=== PATIENT | male | born 1965 | race Caucasian/White ===

== ENCOUNTER 2024-12-23 02:17 | Emergency (ER) | payer BC, SELFPAY ==
--- NOTE | ~2024-12-23 | XR_ITS ---
Examination: XR chest 2V Clinical History: sob Comparison: None Technique: PA and Lateral Findings: Cardiomediastinal silhouette normal size and configuration. Hyperinflation. A few calcified granulomata. Lungs otherwise clear. No acute bony abnormality. IMPRESSION: 1. No acute cardiopulmonary findings. 2. Emphysema with probable COPD. Consider annual screening CT chest. Reviewed, dictated and finalized at location R.
[2024-12-23 02:13] VITALS: BP 147/88; PULSE 85; RESP 22; TEMP 36.8; O2SAT 99
--- NOTE | 2024-12-23 02:22 | ECG_ITS ---
Test Date: 2024-12-23 02:23:25 Measurements Intervals [place] Rate: 83 P: 72 OR: 151 QRS: 265 QRSD: 146 T: 73 QT: 421 QTc: 496 Interpretive Statements SINUS RHYTHM INDETERMINATE AXIS RIGHT BUNDLE BRANCH BLOCK Electronically Signed On 12-24-2024 20:37:20 CDT by Curt Kwong D.O
[2024-12-23 02:25] VITALS: PULSE 79; O2SAT 99
[2024-12-23 02:26] VITALS: O2SAT 96
[2024-12-23 02:31] VITALS: BP 140/85; PULSE 81; RESP 21; O2SAT 97
[2024-12-23 02:44] LABS: Hematocrit 44.3 % (42.0-52.0); Hemoglobin 14.9 g/dL (14.0-18.0); Immature Granulocyte Percent A 0.4 % (0-0.5); Lymphocytes Absolute Auto 1.99 K/mm3 (0.9-3.2); Mean Corpuscular HGB Conc 33.6 g/dl (32-36); Mean Corpuscular Hemoglobin 29.7 pg (26-34); Mean Corpuscular Volume 88.4 fl (80-100); Nucleated Red Blood Cells Absolute Auto 0.000 K/mm3 (0.0-0.012); Nucleated Red Blood Cells Perc 0.0 % (0.0-0.2); Platelet Count Result 350 k/mm3 (150-375); Red Blood Count 5.01 M/mm3 (4.6-6.20); White Blood Count 7.9 K/mm3 (4.5-10.0)
[2024-12-23 02:56] LABS: Alanine Aminotransferase 17 U/L (6-50); Albumin Level 4.4 g/dL (3.5-5.1); Alkaline Phosphatase 63 U/L (38-126); Anion Gap 9 mmol/L (4-12); Aspartate Amino Transferase 23 U/L (17-59); Bilirubin,Total 0.5 mg/dL (0.2-1.3); Blood Urea Nitrogen 21 mg/dL (9-20); Calcium 8.8 mg/dL (8.4-10.2); Carbon Dioxide 23 mmol/L (22-30); Chloride 105 mmol/L (98-107); Estimated CRCL calculation 71 ml/min; Estimated Glomerular Filt Rate > 60; Glucose 90 mg/dL (65-110); Potassium 3.5 mmol/L (3.4-5.0); Sodium 137 mmol/L (137-145); Total Protein 7.2 g/dL (6.3-8.2)
--- NOTE | 2024-12-23 03:47 | ED_ITS ---
HPI - General Adult General Chief complaint: Shortness of Breath/Dyspnea Stated complaint: SOB Time Seen by Provider: 12/23/24 02:38 History of Present Illness HPI narrative: Patient is a 59-year-old male who presents emergency department this evening in respiratory distress. Patient was picked up by EMS from local hotel complaining of shortness of breath. Upon EMS arrival, patient was satting 79% on room air, diffusely wheezing and tripoding. He was placed on a 15 L non-rebreather and administered 2 g of Mag, 125 mg IV Solu-Medrol and a DuoNeb breathing treatment with improvement of his symptoms. Upon arrival to the emergency department, patient is satting 99% on room air. Patient does have a history of COPD and does use an inhaler. 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 One of these chemical his ammonia nitrite. States that in the past this particular chemical has exacerbated his symptoms. Patient is currently resting comfortably, does not appear to be in any distress. Related Data Allergies Allergy/AdvReac Type Severity Reaction Status Date / Time No Known Allergies Allergy Verified 12/23/24 02:23 Review of Systems 2 Review of Systems: All systems are reviewed and are negative unless stated otherwise in the HPI. Exam 2 Narrative: General: Alert, awake, afebrile, in no acute distress. HEENT: PERRL, no rhinorrhea, no post nasal drip, oropharynx clear. Neck: Trachea midline, no JVD, no lymphadenopathy. Cardiovascular: Regular rate and rhythm, no murmurs, rubs or gallops, no peripheral edema. Respiratory: Clear to auscultation bilaterally, no tachypnea, no wheezing, no rhonchi, no rubs, no respiratory distress. Abdomen: Soft, nontender, nondistended, no rebound, no guarding, no peritoneal signs. Musculoskeletal: No joint swelling or deformity, normal muscle tone. Skin: No rashes or petechia, no signs of infection. Psychiatric: Alert and oriented, normal behavior and judgment for situation. Neurological: Alert and oriented to person, place, and time. Follows all commands. No focal deficits, speech is clear and fluent. Course Vital Signs Vital signs: Vital Signs Temperature 98.3 F 12/23/24 02:13 Pulse Rate 85 12/23/24 02:13 Respiratory Rate 22 H 12/23/24 02:13 Blood Pressure 147/88 H 12/23/24 02:13 Pulse Oximetry 99 12/23/24 02:13 Oxygen Delivery Room Air 12/23/24 02:13 Temperature 98.3 F 12/23/24 02:13 Pulse Rate 79 12/23/24 02:25 Respiratory Rate 22 H 12/23/24 02:13 Blood Pressure 147/88 H 12/23/24 02:13 Pulse Oximetry 96 12/23/24 02:26 Oxygen Delivery Room Air 12/23/24 02:26 Medical Decision Making MDM Narrative Medical decision making narrative: The patient was evaluated by myself in the emergency department. History is obtained from patient who is an independent historian and physical exam was performed. External medical records were reviewed at this time. IV was established and pertinent tests were ordered. EKG was obtained which revealed sinus rhythm rate of 83 beats per minute with right bundle branch block, otherwise no evidence of acute ischemia. EKG was independently interpreted by me and is currently pending official cardiology read. Laboratory results obtained revealing no acute process. Imaging studies obtained included CXR which was independently interpreted by me revealing no acute process, which is pending final radiology interpretation. Differential diagnosis considerations include reactive airway disease/COPD exacerbation, acute viral syndrome, infectious process such as pneumonia. Comorbidities impacting this visit include history of COPD. I have evaluated and discussed social determinants of health with the patient that could potentially impact subsequent diagnosis and treatment plans. On repeat assessment of the patient, reevaluation revealed that the patient is doing well and is in no acute distress. Patient symptoms have improved since he arrived to our emergency department. Repeat vital signs were all reviewed and noted to be stable. Differential diagnosis and treatment plan were discussed with the patient at bedside. Patient agrees with discussion and after shared medical decision making agrees with discharge. All questions were answered to the patient's satisfaction. Patient will follow up with his PCP in 3-5 days. Patient was provided with strict return precautions and instructed to return to the emergency department if any new or worsening symptoms develop. The patient was discharged in stable condition. Vital Signs Vital Signs: Vital Signs Temperature 98.3 F 12/23/24 02:13 Pulse Rate 85 12/23/24 02:13 Respiratory Rate 22 H 12/23/24 02:13 Blood Pressure 147/88 H 12/23/24 02:13 Pulse Oximetry 99 12/23/24 02:13 Oxygen Delivery Room Air 12/23/24 02:13 Temperature 98.3 F 12/23/24 02:13 Pulse Rate 79 12/23/24 02:25 Respiratory Rate 22 H 12/23/24 02:13 Blood Pressure 147/88 H 12/23/24 02:13 Pulse Oximetry 96 12/23/24 02:26 Oxygen Delivery Room Air 12/23/24 02:26 Lab Data 12/23/24 02:36 12/23/24 02:36 Labs: Lab Results 12/23/24 Range/Units 02:36 WBC 7.9 (4.5-10.0) K/mm3 RBC 5.01 (4.6-6.20) M/mm3 Hgb 14.9 (14.0-18.0) g/dL Hct 44.3 (42.0-52.0) % MCV 88.4 (80-100) fl MCH 29.7 (26-34) pg MCHC 33.6 (32-36) g/dl RDW 14.1 (11.5-14.5) % Plt Count 350 (150-375) k/mm3 MPV 9.0 (7.4-10.4) fl Immature Gran % (Auto) 0.4 (0-0.5) % Neut % (Auto) 60.9 (45.5-73.1) % Lymph % (Auto) 25.4 (18.3-44.2) % Chambers % (Auto) 7.9 (2.6-8.5) % Eos % (Auto) 4.1 (0-4.4) % Baso % (Auto) 1.3 H (0.2-1.2) % Lymph # (Auto) 1.99 (0.9-3.2) K/mm3 Chambers # (Auto) 0.6 (0.1-0.6) K/mm3 Eos # (Auto) 0.3 (0-0.3) K/mm3 Baso # (Auto) 0.1 (0.0-0.1) K/mm3 Abs Immat Gran (auto) 0.03 (0.00-0.031) K/mm3 Absolute Neuts (auto) 4.8 (1.3-6.7) K/mm3 Absolute Nucleated RBC 0.000 (0.0-0.012) K/mm3 Nucleated RBC % 0.0 (0.0-0.2) % Sodium 137 (137-145) mmol/L Potassium 3.5 (3.4-5.0) mmol/L Chloride 105 (98-107) mmol/L Carbon Dioxide 23 (22-30) mmol/L Anion Gap 9 (4-12) mmol/L BUN 21 H (9-20) mg/dL Creatinine 0.81 (0.7-1.3) mg/dL Estim Creat Clear Calc 71 ml/min Estimated GFR > 60 (59 - ) Glucose 90 (65-110) mg/dL Calcium 8.8 (8.4-10.2) mg/dL Total Bilirubin 0.5 (0.2-1.3) mg/dL AST 23 (17-59) U/L ALT 17 (6-50) U/L Alkaline Phosphatase 63 (38-126) U/L Total Protein 7.2 (6.3-8.2) g/dL Albumin 4.4 (3.5-5.1) g/dL Discharge Plan Discharge Clinical Impression: Acute exacerbation of chronic obstructive pulmonary disease Patient Disposition: Home Condition: Improved Instructions: Antibiotic Form, COPD (Chronic Obstructive Pulmonary Disease) (DC) Additional Instructions: Please follow-up with the family doctor within the next 3-5 days. Return to emergency department for any new or worsening symptoms develop. Patient Language: Urdu Follow-up/Referrals: Jason Ragland MD [Physician, Family Practice] - 3 Days Time of Disposition: 03:48
[2024-12-23 04:14] VITALS: BP 140/85; PULSE 84; RESP 20; O2SAT 94
== END 2024-12-23 04:17 | disposition home or self-care (01) ==
LOC: ANHED 03:53
PROVIDERS: Emergency Provider Emergency Medicine
DX: J44.1 Chronic obstructive pulmonary disease with (acute) exacerbation (principal); I45.10 Unspecified right bundle-branch block
CPT/HCPCS: 36415; 71046; 80053; 85025; 93005; 99284